=== PATIENT | female | born 1955 | race Caucasian/White ===

== ENCOUNTER 2019-09-05 07:55 | Day surgery (SDC) | payer MEDICAID ==
[~2019-09-05] VITALS: Ht 167.6 cm; Wt 64.4 kg
[~2019-09-05 07:55] MED LIST: LACTATED RINGERS 1,000 ML IV SCH; LEVO75TA7 PO
[2019-09-05] MEDS ORDERED: METHYLPREDNISOLONE SOD SUCC 40 MG/ML VIAL ONE (09:04)
[2019-09-05] MEDS ORDERED: TRIAMCINOLONE ACETONIDE 40MG/ML 1ML VIAL ONE (09:05)
[2019-09-05] MEDS ORDERED: PROPOFOL 200MG/20ML VIAL IV ONE (09:20)
[2019-09-05] MEDS ORDERED: FENTANYL CITRATE/PF 50MCG/ML 2ML VIAL ONE (09:20)
[2019-09-05] MEDS ORDERED: LIDOCAINE HCL/PF 1% 10 MG/ML 5ML VIAL ONE (09:20)
[2019-09-05] MEDS ORDERED: ACETAMINOPHEN 500MG TABLET PO SCH (10:30)
[2019-09-05] MEDS ORDERED: ACETAMINOPHEN 500MG TABLET ONE (10:36)
[2019-09-05] MEDS ORDERED: BALANCED SALT IRRIG SOLN 15ML ONE (11:14)
[2019-09-05] MEDS ORDERED: PREDNISOLONE ACETATE 1% OPHTH DROPS 5ML ONE (11:14)
[2019-09-05] MEDS ORDERED: TETRACAINE 0.5% OPHTH DROPS 4ML ONE (11:14)
[2019-09-05] MEDS ORDERED: CIPROFLOXACIN 0.3% OPHTH SOLN 2.5ML ONE (11:14)
[2019-09-05] MEDS ORDERED: BUPIVACAINE HCL/PF 0.75% (7.5MG/ML) 10ML ONE (11:14)
[2019-09-05] MEDS ORDERED: LIDOCAINE HCL 2%/EPINEPHRINE 1:100,000 20 ML VIAL INFIL ONE (11:14)
== END 2019-09-05 10:45 | disposition home or self-care (01) ==
LOC: OR 07:55
PROVIDERS: ATTEND Ophthalmology
DX: H11.001 Unspecified pterygium of right eye (principal); E03.9 Hypothyroidism, unspecified; E78.00 Pure hypercholesterolemia, unspecified; Z79.899 Other long term (current) drug therapy; Z98.890 Other specified postprocedural states; Z88.8 Allergy status to other drugs, medicaments and biological substances
CPT/HCPCS: 65420; J2704; J3010; J3490; J2920; J3301

== ENCOUNTER → 2019-09-29 | Outpatient (CLI) | payer MEDICAID ==
[~2019-09-29] MED LIST changes: -LACTATED RINGERS 1,000 ML IV SCH
== END | disposition home or self-care (01) ==
LOC: LAB 07:25
PROVIDERS: ATTEND Ophthalmology
DX: Z01.818 Encounter for other preprocedural examination (principal); Z11.59 Encounter for screening for other viral diseases
CPT/HCPCS: C9803; U0003

== ENCOUNTER 2019-10-03 06:53 | Day surgery (SDC) | payer MEDICAID ==
[~2019-10-03] VITALS: Ht 167.6 cm; Wt 64.4 kg
[2019-10-03] MEDS ORDERED: CYCLOPENTOLATE HCL 1% OPHTH DROPS 2ML LEFTEYE NR (08:30)
[2019-10-03] MEDS ORDERED: PHENYLEPHRINE HCL 10% OPHTH DROPS 5ML LEFTEYE NR (08:30)
[2019-10-03] MEDS ORDERED: LACTATED RINGERS 1,000 ML IV SCH (08:30)
[2019-10-03] MEDS ORDERED: TROPICAMIDE 1% OPHTH DROPS 15ML LEFTEYE NR (08:30)
[2019-10-03] MEDS ORDERED: BALANCED SALT IRRIG SOLN COMB1 500ML OP SCH (08:30)
[2019-10-03] MEDS ORDERED: HYALURONATE SODIUM 10 MG/ML 0.55ML SYRINGE IO ONE (10:09)
[2019-10-03] MEDS ORDERED: BALANCED SALT IRRIG SOLN 15ML ONE (10:47)
[2019-10-03] MEDS ORDERED: TETRACAINE 0.5% OPHTH DROPS 4ML ONE (10:47)
[2019-10-03] MEDS ORDERED: CIPROFLOXACIN 0.3% OPHTH SOLN 2.5ML ONE (10:47)
[2019-10-03] MEDS ORDERED: LIDOCAINE HCL/PF 2% 20 MG/ML 10ML VIAL ONE (10:47)
[2019-10-03] MEDS ORDERED: MIDAZOLAM HCL 2 MG/2 ML VIAL ONE (10:50)
[2019-10-03] MEDS ORDERED: ACETAMINOPHEN 500MG TABLET PO SCH (11:45)
== END 2019-10-03 13:45 | disposition home or self-care (01) ==
LOC: OR 06:53
PROVIDERS: ATTEND Ophthalmology
DX: H25.89 Other age-related cataract (principal); E78.00 Pure hypercholesterolemia, unspecified; E03.9 Hypothyroidism, unspecified; Z79.899 Other long term (current) drug therapy; Z98.890 Other specified postprocedural states
CPT/HCPCS: 66984; J2250; J3490; V2632